=== PATIENT | female | born 2000 | race African-American/Black ===

== ENCOUNTER 2023-06-01 11:21 | Emergency (ER) | payer OTHER ==
[2023-06-01 11:35] VITALS: BP 118/63; PULSE 103; RESP 20; TEMP 98.6; BMI 22.3
[2023-06-01 12:45] LABS: URINE APPEARANCE CLEAR; URINE BILIRUBIN NEGATIVE (NEGATIVE); URINE COLOR YELLOW; URINE GLUCOSE (UA) NEGATIVE (NEGATIVE); URINE KETONE NEGATIVE (NEGATIVE); URINE LEUK ESTERASE NEGATIVE (NEGATIVE); URINE NITRITE NEGATIVE (NEGATIVE); URINE PROTEIN NEGATIVE (NEGATIVE); URINE UROBILINOGEN 0.2 mg/dL (0.2-1.0)
[2023-06-01 12:48] LABS: HCG,QUALITATIVE URINE Negative
== END 2023-06-01 14:58 | disposition home or self-care (01) ==
LOC: JERFT 11:21
DX: R10.30 Lower abdominal pain, unspecified (principal); R30.0 Dysuria; R35.0 Frequency of micturition; R39.15 Urgency of urination; N39.0 Urinary tract infection, site not specified; Z20.822 Contact with and (suspected) exposure to COVID-19
CPT/HCPCS: 0241U-QW; 81003; 84703; 87086; 99283-25

== ENCOUNTER 2023-06-06 09:20 | Emergency (ER) | payer OTHER ==
[2023-06-06 09:45] VITALS: BP 100/70; PULSE 91; RESP 20; TEMP 98.5; BMI 25.7
[2023-06-06 10:33] LABS: URINE APPEARANCE CLEAR; URINE BILIRUBIN NEGATIVE (NEGATIVE); URINE COLOR YELLOW; URINE GLUCOSE (UA) NEGATIVE (NEGATIVE); URINE KETONE NEGATIVE (NEGATIVE); URINE LEUK ESTERASE NEGATIVE (NEGATIVE); URINE NITRITE NEGATIVE (NEGATIVE); URINE PROTEIN NEGATIVE (NEGATIVE)
[2023-06-06 10:36] LABS: HCG,QUALITATIVE URINE Negative
== END 2023-06-06 11:52 | disposition home or self-care (01) ==
LOC: JERFT 09:20
DX: N91.2 Amenorrhea, unspecified (principal); N92.6 Irregular menstruation, unspecified
CPT/HCPCS: 81003; 84703; 87086; 99283-25

== ENCOUNTER 2025-03-05 08:36 | Emergency (ER) | payer OTHER ==
[2025-03-05] MEDS ORDERED: ACETAMINOPHEN 500 MG TABLET (FP) ONE (10:26)
[2025-03-05] MEDS: ACETAMINOPHEN 500 MG TABLET (FP) PO ONE (10:32)
[2025-03-05] MEDS: SODIUM CHLORIDE 0.9% 500 ML INFUS.BAG IV ONE (10:33)
[2025-03-05 11:10] LABS: THROAT:GRP A STREP NOT DETECTED (NOTDETECTED)
[2025-03-05 11:16] VITALS: RESP 18; TEMP 98.4; BMI 29.2
[2025-03-05] MEDS: SODIUM CHLORIDE 0.9% 1000 ML INFUS.BAG IV ONE (12:02)
[2025-03-05 13:28] LABS: EPI CELLS 23 /uL (0-25.1); HYALINE CASTS 1 /uL (0-3.1); URINE APPEARANCE CLEAR; URINE BACTERIA 360 /uL (0-1359); URINE BILIRUBIN NEGATIVE (NEGATIVE); URINE COLOR YELLOW; URINE GLUCOSE (UA) NEGATIVE (NEGATIVE); URINE KETONE TRACE (NEGATIVE); URINE LEUK ESTERASE TRACE (NEGATIVE); URINE NITRITE NEGATIVE (NEGATIVE); URINE PROTEIN NEGATIVE (NEGATIVE); URINE RBC 4 /uL (0-23.9); URINE UROBILINOGEN 0.2 mg/dL (0.2-1.0); URINE WBC 21 /uL (0-25.8)
[2025-03-05 13:50] VITALS: BP 110/72; PULSE 107
== END 2025-03-05 14:17 | disposition home or self-care (01) ==
LOC: JER 08:36
DX: O23.43 Unspecified infection of urinary tract in pregnancy, third trimester (principal); O99.513 Diseases of the respiratory system complicating pregnancy, third trimester; J02.9 Acute pharyngitis, unspecified; O99.891 Other specified diseases and conditions complicating pregnancy; R13.10 Dysphagia, unspecified; R00.0 Tachycardia, unspecified; O26.893 Other specified pregnancy related conditions, third trimester; R53.83 Other fatigue; Z3A.32 32 weeks gestation of pregnancy
CPT/HCPCS: 0241U-QW; 81003; 87086; 87651; 93005; 93010; 99284-25